=== PATIENT | male | born 1945 ===

== ENCOUNTER → 2017-07-21 | Outpatient (CLI) | payer MEDICARE, OTHER ==
[~2017-07-21] MED LIST: ASPIRIN LO-DOSE81 MG PO; PROVENTIL OR V6.7 GM INH; REFRESH OPTIVE15 ML OPHTH
[2017-07-21 15:45] LABS: ALBUMIN 3.6 gm/dL (3.5-5.0); ANION GAP 10.8 (10.0-19.0); BLOOD UREA NITROGEN 9 mg/dL (6-24); CALCIUM 8.9 mg/dL (8.5-10.5); CHLORIDE 111 mMol/L (96-110); CO2 23 mMol/L (22-32); CREATININE 0.6 mg/dL (0.6-1.3); MAGNESIUM 2.2 mg/dL (1.8-2.6); PHOSPHORUS 2.7 mg/dL (2.5-4.9); POTASSIUM 3.8 mMol/L (3.7-5.1); SODIUM 141 mMol/L (135-145)
== END ==
LOC: LCNC 15:04
PROVIDERS: Internal Medicine Interventional Cardiology
DX: R53.82 Chronic fatigue, unspecified (principal)